=== PATIENT | female | born 1955 | race Two or more races ===

== ENCOUNTER 2018-06-03 01:14 | Emergency (ER) | payer SELFPAY ==
--- NOTE | 2018-06-03 01:35 | PDOC ---
History of Present Illness - General Stated Complaint: CONGESTION Time Seen by Provider: 06/03/18 01:34 History Source: Patient Exam Limitations: No Limitations - History of Present Illness Initial Comments: Pt is a 62 yo F, with no significant PMH, who is presenting with complaints of dry nasal congestion and dry cough ~2 weeks. Pt states cough has been dry, no production or hemoptysis. The cough began around 2 weeks ago, improved for a few days, and started again ~2 days ago. She has tried OTC medications with expectorants and antipyretics with minimal relief. She says the cough is now interfering with her sleep. Pt denies any fevers/chills, headache, vision changes, syncope, chest pain, palpitations, SOB, nausea/vomiting, abdominal pain , urinary symptoms, diarrhea/constipation, or leg swelling. Pt took her flu shot this year. No prior hospitalizations for pneumonia, no intubations. Social: Pt denies any cigarette, alcohol, or drug use. Pt denies any recent travel. Her brother and brother's family have been sick with similar symptoms at home. Surgical: no relevant history Family: no relevant history 06/03/18 03:11 Past History - Travel Traveled outside of the country in the last 30 days: No Close contact w/someone who was outside of country & ill: No - Past Medical History Allergies/Adverse Reactions: Allergies Allergy/AdvReac Type Severity Reaction Status Date / Time No Known Allergies Allergy Verified 06/03/18 01:39 Home Medications: Ambulatory Orders Albuterol Sulfate Inhaler - [Ventolin HFA Inhaler -] 1 - 2 inh PO Q4H PRN #1 inhaler 06/03/18 Azithromycin 250 mg PO DAILY 5 Days #6 tablet 06/03/18 Cardiac Disorders: No Diabetes: No HTN: No Hypercholesterolemia: No - Surgical History Lung Surgery: No Review of Systems - Review of Systems Able to Perform ROS?: Yes Is the patient limited Green[place]ic proficient: No Constitutional: Yes: Weight Stable. No: Chills, Diaphoresis, Fever, Loss of Appetite HEENTM: Yes: Nose Congestion. No: Recent change in vision, Ear Pain, Ear Discharge, Throat Pain, Difficulty Swallowing Respiratory: Yes: Cough. No: Orthopnea, Shortness of Breath, Productive cough, Hemoptysis Cardiac (ROS): Yes: Chest Tightness. No: Chest Pain, Edema, Irregular Heart Rate, Lightheadedness, Palpitations, Syncope ABD/GI: No: Constipated, Diarrhea, Nausea, Poor Appetite, Poor Fluid Intake, Vomiting, Abdominal cramping : No: Burning, Dysuria, Pain, Urgency Musculoskeletal: No: Back Pain, Joint Pain Integumentary: No: Rash Neurological: No: Headache, Numbness, Unsteady Gait, Ataxia, Dizziness Psychiatric: No: Sleep Pattern Change, Change in Appetite Endocrine: No: Increased Urine, Change in Weight Hematologic/Lymphatic: No: Anemia, Blood Clots, Easy Bleeding, Easy Bruising All Other Systems: Reviewed and Negative *Physical Exam - Physical Exam General Appearance: Yes: Nourished, Appropriately Dressed. No: Apparent Distress HEENT: positive: EOMI, ANTONIO, Normal ENT Inspection, Normal Voice, TMs Normal, Pharynx Normal, Nasal Congestion, Hearing Grossly Normal. negative: Scleral Icterus (R), Scleral Icterus (L), Pharyngeal Erythema, Tonsillar Exudate, Tonsillar Erythema, Rhinorrhea, Sinus Tenderness, TM Bulging, TM Dull, TM Erythema Neck: positive: Trachea midline, Normal Thyroid, Supple. negative: Tender, Rigid, Decreased range of motion, Lymphadenopathy (R), Lymphadenopathy (L) Respiratory/Chest: positive: Rhonchi (coarse breath sounds and expiratory wheeze throughout), Wheezing. negative: Chest Tender, Lungs Clear, Normal Breath Sounds, Respiratory Distress, Accessory Muscle Use, Crackles, Stridor Cardiovascular: positive: Regular Rhythm, Regular Rate, S1, S2. negative: Edema , JVD, Murmur Vascular Pulses: Carotid (R): 4+, Carotid (L): 4+ Gastrointestinal/Abdominal: positive: Normal Bowel Sounds, Flat, Soft. negative : Tender, Organomegaly, Pulsatile Mass, Distended, Guarding, Rebound Rectal Exam: positive: deferred Lymphatic: positive: Adenopathy, Tenderness Musculoskeletal: positive: Normal Inspection. negative: CVA Tenderness Extremity: positive: Normal Capillary Refill, Normal Inspection, Normal Range of Motion, Pelvis Stable. negative: Tender, Pedal Edema Integumentary: positive: Normal Color, Dry, Warm. negative: Jaundice, Clammy, Diaphoresis, Rash Neurologic: positive: drain cleaner II-XII NML intact, Fully Oriented, Alert, Normal Mood/ Affect, Normal Response, Motor Strength 5/5 ED Treatment Course - LABORATORY CBC & Chemistry Diagram: 06/03/18 02:15 06/03/18 02:15 Medical Decision Making - Medical Decision Making Pt was seen at bedside, also will be seen by attending Dr. Jones. Pt presenting with complaints of dry nasal congestion and dry cough ~2 weeks. Pt states cough has been dry, no production or hemoptysis. The cough began around 2 weeks ago, improved for a few days, and started again ~2 days ago. She has tried OTC medications with expectorants and antipyretics with minimal relief. She says the cough is now interfering with her sleep. Pt denies any fevers/chills, headache, vision changes, syncope, chest pain, palpitations, SOB, nausea/ vomiting, abdominal pain, urinary symptoms, diarrhea/constipation, or leg swelling. PE showed b/l coarse breath sounds with expiratory wheezing throughout. Heart sounds clear, no JVD, no pedal edema. No abdominal tenderness. No pharyngeal exudate or erythema. Considering viral URI vs pneumonitis 2/2 viral URI vs pneumonia (bacterial, atypical) vs influenza. Ordered work-up including CBC, CMP, influenza, and chest x-ray. Provided duoneb and 1 L IV NS for improvement of dyspnea and dehydration. Will continue to reassess pt and monitor for symptomatic improvement. 06/03/18 02:21 CBC: mild WBC elevation (13) CMP generally WNL Influenza negative. Pt taken for chest x-ray. 06/03/18 03:06 Chest x-ray showed mild b/l hazy infiltrates, no focal pneumonia noted. Pt is feeling much improved after nebulizer treatments. Sent azithromycin (cover for atypicals) and albuterol inhaler to pt pharmacy. Pt advised to follow-up with PCP in 1-2 days. Strict return precautions provided with pt understanding. 06/03/18 03:33 *DC/Admit/Observation/Transfer Diagnosis at time of Disposition: Viral URI with cough - Discharge Dispostion Disposition: HOME Condition at time of disposition: Improved Decision to Admit order: No - Prescriptions Prescriptions: Albuterol Sulfate Inhaler - [Ventolin HFA Inhaler -] 1 - 2 inh PO Q4H PRN #1 inhaler PRN Reason: Short Of Breath/Wheezing Azithromycin 250 mg PO DAILY 5 Days #6 tablet - Referrals Referrals: Em Coffman [Non Staff, Medical] - [facility] [place] [facility] [place] [Provider Group] - Patient Instructions Printed Discharge Instructions: DI for Viral Upper Respiratory Infection -- Adult Additional Instructions: You were seen in the ER today for cough. You improved after nebulizer treatments. Please follow-up with your primary care doctor within 1-2 days to discuss your visit and make sure your symptoms have improved. Please return to the ER if you have any worsening cough that becomes productive, development of fevers or chills that does not improve with tylenol or ibuprofen, loss of consciousness, inability to tolerate food or fluids, or any other concerns. We have sent an albuterol inhaler to your pharmacy. 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 - Post Discharge Activity
[2018-06-03 01:42] VITALS: TEMP 98.6; BMI 30.1
[2018-06-03] MEDS ORDERED: ALBUTEROL SO4 0.083% IH SOL 2.5 MG/3 ML VIAL.NEB. NEB ONE (01:59)
[2018-06-03] MEDS ORDERED: SODIUM CHLORIDE 1,000 ML IV STA (02:00)
[2018-06-03] MEDS ORDERED: ALBUTEROL SO4 2.5/IPRATROPIUM 0.5 INH SOL 3 ML VIAL.NEB. NEB ONE (02:13)
[2018-06-03 02:25] LABS: BASO % 0.7 % (0-2.0); EOS % 6.2 % (0-4.5); HEMATOCRIT 41.1 % (32.4-45.2); HEMOGLOBIN 13.3 GM/dL (10.7-15.3); LYMPH % 9.4 % (8-40); MCH 27.7 pg (25.7-33.7); MCHC 32.4 g/dl (32.0-36.0); MEAN CELL VOLUME 85.3 fl (80-96); MEAN PLT VOLUME 8.5 fl (7.5-11.1); NEUT % 74.7 % (42.8-82.8); PLATELET COUNT 344 K/MM3 (134-434); RBC 4.82 M/mm3 (3.60-5.2); RDW 14.6 % (11.6-15.6); WHITE BLOOD COUNT 13.2 K/mm3 (4.0-10.0)
--- NOTE | 2018-06-03 02:34 | PDOC ---
Attending Attestation - Resident Resident Name: Amanda Lewis - ED Attending Attestation I have performed the following: I have examined & evaluated the patient, The case was reviewed & discussed with the resident, I agree w/resident's findings & plan, Exceptions are as noted - HPI HPI: 06/03/18 04:26 Reviewed Residents HPI - Physicial Exam PE: 06/03/18 04:27 Vitals: Triage Vital signs reviewed General Appearance: no acute distress, well nourished well developed, Head: Atraumatic, Neck: Supple;No Nucal rigidity Chest Wall: Nontender Cardiac: Regular rate and rhythym, no murmurs, no rubs, no gallops, Lungs: Bilateral end expiratory wheeze Abdomen: Soft, non distended, normal bowel sounds, non tender to palpation Extremities: Full range of motion to all extremities, no cyanosis, clubbing, or edema Skin: Warm and dry, no rashes or lesions, no rash, no petechiae Psych: normal mood, normal affect - Medical Decision Making 06/03/18 04:43 History and examination consistent with reactive airway disease likely secondary to viral URI versus atypical pneumonia Status post nebulizer treatments patient feels much better laboratory analysis notable for slightly elevated WBC we'll discharge home with Ventolin MDI and azithromycin with close PCP follow-up Findings, the need for follow-up and strict return instructions discussed with patient.
[2018-06-03 02:48] LABS: ALBUMIN 3.4 g/dl (3.4-5.0); ALK PHOS 111 U/L (45-117); ANION GAP 8 MMOL/L (8-16); BILIRUBIN,TOTAL 0.2 mg/dL (0.2-1); BLOOD UREA NITROGEN 17 mg/dL (7-18); CALCIUM 8.6 mg/dL (8.5-10.1); CHLORIDE 110 mmol/L (98-107); CO2 24 mmol/L (21-32); GLUCOSE,RANDOM 120 mg/dL (74-106); POTASSIUM 4.1 mmol/L (3.5-5.1); SGOT/AST 19 U/L (15-37); SGPT/ALT 20 U/L (13-61); SODIUM 142 mmol/L (136-145); TOT PROT 7.8 g/dl (6.4-8.2)
[2018-06-03 03:42] VITALS: BP 146/89; PULSE 110
== END 2018-06-03 03:42 | disposition home or self-care (01) ==
LOC: JER 01:14
PROC: 3E0337Z Introduction of Electrolytic and Water Balance Substance into Peripheral Vein, Percutaneous Approach (ICD-10-PCS; principal; 2018-06-03)
PROC: 3E0F7GC Introduction of Other Therapeutic Substance into Respiratory Tract, Via Natural or Artificial Opening (ICD-10-PCS; 2018-06-03)
DX: B97.89 Other viral agents as the cause of diseases classified elsewhere (principal)
CPT/HCPCS: 36415; 71046-TC-FY; 80053; 85025; 87804; 99281-25; 99282-25; J7030